=== PATIENT | male | born 1955 | race Caucasian/White ===

== ENCOUNTER 2017-05-15 01:46 | Inpatient (IN) | payer OTHER ==
[~2017-05-15] VITALS: Ht 190.5 cm; Wt 104.3 kg
--- NOTE | 2017-05-15 10:19 | Operative Report ---
Operative/Inv Procedure Report Surgery Date: 05/15/17 Name of Procedure: L3, L4 pars osteotomies L3/4, L4/5 far lateral discectomies L3/4, L4/5 TLIF with 4webb cages, autograft, DBX L3/4, L4/5 segmental posterolateral arthrodesis with synthes pedicle screws and rods, autograft, DBX O-arm navigation Pre-Operative Diagnosis: 1.L3/4, L4/5 spondylolisthesis, stenosis 2.Left extruded L3/4 HNP 3.Right L3/4 synovial cyst 4.L5 lateral recess stenosis 5.kyphosis Post-Operative Diagnosis: same Estimated Blood Loss: 1800cc Surgeon/Load Out Person: Cassie CAPELLAN,Yong Burnham MD Anesthesia: general endotracheal tube Monitors: neurophysiologic monitoring IV Fluids: 1800cc replaced with crystalloid, 1L cell saver Implants: synthes, 4webb Urine Output: 1L via arnett Drains: med HV Specimens: L3/4, L4/5 disc material Condition: stable Operative Indication: 62yo male with ongoing back and bilat LE claudication despite nonoperative treatment with unstable L3/4, L4/5 spondylolistheis and left extruded HNP at L3/ 4 contributing to high grade central and foraminal stenosis who now presents for operative decompression and instrumented stabilization. Operative/Procedure Note Note: Patient was taken to the operating room. After appropriate patient identification and surgical timeout, the patient underwent the smooth induction of general endotracheal anesthesia without incident. Once endotracheal tube was secured in position, Arnett catheter was sterilely inserted. DVT prophylaxis utilized throughout the case. Neurophysiologic monitoring leads placed and baseline recordings obtained. Patient then turned to the prone position on the Salo table taking care to ensure that all pressure points were well-padded. Lumbar region low back widely prepped and draped in the usual sterile fashion using povidone iodine solution. Midline incision was marked and infiltrated with local anesthetic. Small gauge spinal needle was placed superficially and a localizing lateral lumbar x-rays obtained and confirmed to be at the L4/5 level. A skin incision was then made from approximately L2 to to L5 with a 10 blade knife and a self-retaining retractor was placed. Dissection was carried down through the subcutaneous tissue with the Bovie to the lumbodorsal fascia. Fascia was incised in midline and a subperiosteal dissection of the lumbar paravertebral muscles performed bilaterally exposing spinous processes, lamina, and facets bilaterally. Muscle was reflected under self-retaining retractors. A [place] was placed at the presumed L3 pars and intraoperative lateral x-ray was obtained to confirm the correct levels. With the levels verified, we then proceeded to expose the transverse processes of L3, L4, and L5 bilaterally. They were decorticated with a high-speed drill to prepare them for arthrodesis. Lateral gutters were packed off. We focused our attention to the decompression. Total laminectomies were performed from L3,L4, and L5 using a combination of the bone scalpel, Leksell rongeur, and Kerrison rongeurs. Pars osteotomies were performed at L3, and L4 using the bone scalpel and total facetectomies were completed skeletonizing the pedicles from L3 to L5 . All bone was saved and passed off to the back table. Exiting and traversing roots were thoroughly decompressed. A synovial cyst on the right at L3/4 was resected and passed off as specimen. We then proceeded with interbody arthrodesis. Starting at L3/4, The dural sac on the left was gently mobilized to the midline. The underlying annulus was coagulated and incised with an 11 blade knife. Discectomy was performed with straight and angled curettes, disc space johanne and rasps until all of the cartilaginous endplate was removed. Caudally extruded disc material in the left gutter was identified. Overlying pseudocapsule was coagulated and incised and several fragments of extruded disc were removed from beneath the shoulder of the L4 root. Morcellated autograft was then packed into the anterior aspect of the disc space. After appropriate trials, an 12 x 26 mm 4 ortiz cage was selected, packed with morcellated autograft then tamped into the disc space under direct observation and countersunk. Visual inspection noted the position of the cage to be excellent. With the L3/4 cage in position, we proceeded with the interbody arthrodesis at L4/5 in an analogous fashion. The disc space was approached via the left side. Complete discectomy was performed and then a second 12 x 26 mm 4 ortiz cage packed with autograft was tamped into the interspace with morcellated autograft in the anterior disc space. The cage countersunk. Neural elements were protected and neurophysiologic monitoring remained stable throughout. Once the facetectomies were completed, we proceeded with placement of the pedicle screw instrumentation. The O arm reference arc was placed on the S1 spinous process and the O arm was brought into play. Reference AP and lateral x -rays were obtained followed by a spin. Axial, coronal, and sagittal reconstructions were then acquired and confirmed. Using O arm navigation, we then proceeded to placement of the Synthes [employer] pedicle screw instrumentation. The entry points were selected with navigation, marked with the drill, pedicles were traversed with a gearshift, sounded with a ball-tipped probe, tapped, and then screws placed. At L3 and L5, 6.5 x 55 mm screws were placed bilaterally. At L4, 6.5 x 50 mm screws placed bilaterally. Once all screws were in position, they were stimulated with thresholds greater than 30 mA. With the screws in position, the O arm was brought back into play. A second spin was obtained and confirmed excellent position of all of the instrumentation the decompression of the central canal and neural foramen was excellent. A 75m right and 65mm left Lordotic titanium rods were then top loaded into the screws and locking caps were placed. Morcellated autograft was packed over the decorticated transverse processes from L3 to L5 bilaterally over which DBX moistened with backbleeding from the pedicle holes. Screws were then finally tightened with an antitorque device. The wound was copiously irrigated with sterile normal saline and we began wound closure. there was no evidence of a CSF leak or significant bleeding. 1 g of IV vancomycin powder was placed into the wound over the cut muscle and soft tissue surfaces. A medium Hemovac drain was placed into the wound and secured to the skin with a 3-0 nylon suture. The wound was closed in layers with interrupted 0 Vicryl suture in the deep muscle and lumbodorsal fascia. Subcutaneous tissue was closed with interrupted 2-0, and 3-0 Vicryl suture and the skin was closed with ashkan. Wounds clean and dried. Bacitracin and a sterile occlusive dressing was placed. Patient was then returned to the supine position, awakened, extubated, and taken to PACU in stable condition. She was noted to be moving all 4 extremities at the completion of the case. All sponge, needle, and instrument counts were correct at the completion of the procedure 3. Neurophysiologic monitoring was stable throughout the case. Findings: 1. caudally extruded left L3/4 HNP 2. right L3/4 synovial cyst 3. L4./5 spondylolisthesis 4. L3, L4, L5 stenosis Discharge Disposition: PACU
--- NOTE | 2017-05-15 14:32 | RADIOLOGY REPORT ---
EXAMINATION: XR LUMBAR SPINE, 2 SEPARATE IMAGES CLINICAL INFORMATION: L3-L4 and L4-L5 PLIF. COMPARISON: MRI scan of the lumbar spine dated 02/14/2017. TECHNIQUE: Lateral views of the lumbar spine were performed and are labeled image 1 and image 2. FINDINGS: Image 1: There is a surgical marker seen projected over the posterior elements at the L4-L5 interspace. Image 2: A surgical marker is seen projected over the L3 pedicle. IMPRESSION: Intraoperative films localizing the L4-L5 interspace and the L3 pedicle.
--- NOTE | 2017-05-15 16:51 | Operative Report ---
Operative/Inv Procedure Report Surgery Date: 05/15/17 Name of Procedure: L3 4 5 transforaminal lumbar interbody fusion Right-sided L3 for removal of synovial cyst left-sided L3 4 discectomy Left-sided trans-facet decompression of exiting traversing nerve roots L45 Bilateral L5 hemilaminotomies L3 4 5 posterior lateral fusion using autograft and allograft L3 4 and 5 posterior lateral segmental instrumentation using Synthes pedicle screws Bone marrow aspirate Stealth navigation Placement of intervertebral biomechanical devices at L3 4 and 45 Bilateral osteotomies at 34 and 454 spondylolisthesis and kyphotic deformity correction Pre-Operative Diagnosis: L3 4 4 5 spondylolisthesis kyphotic deformity. Herniated nucleus pulposis, synovial cyst, L5 lateral recess stenosis Post-Operative Diagnosis: Same Estimated Blood Loss: 1500 Surgeon/Team Assistant: Cassie Livingston MD,Luci Marks Anesthesia: general endotracheal tube Operative/Procedure Note Note: After the successful administration of general endotracheal anesthesia all lines tubes and monitors were placed by anesthesia team the patient positioned prone on the Salo table pressure points padded. The patient usual standard fashion , a spinal needles placed at the L4 5 interspace x-rays used to confirm level after levels removed the patient was prepped and draped usual standard fashion a #10 blade blade was used after 10 mL lidocaine with epinephrine infiltrated into the subcutaneous tissues. This was deepened Bovie cautery to thoracolumbar fascia a subperiosteal dissection was carried out exposing spinous process and lamina of L3 4 and 5 care taken not to denude to 3 joint space after was confirmed by placing a marker lateral to the pars at L3 the 3445 joint space we denuded the transverse processes were exposed bilaterally soft tissue retractors were inserted. We then used the bone scalpel to make cuts in the pars reticularis bilaterally at L3 removing the descending facets of L3 cuts were made in the superior facets of L4 on the left-hand side, we then repeated the steps at L4 with cuts in the pars at L4 removing the posterior once L4 bilaterally the superior facet of L5 bilaterally we then medialized the thecal sac into the disc space at L3 4 for total discectomy at L3 4 we then worked caudally finding the herniated nucleus pulposus which was resected. We then identified a synovial cyst on the right-hand side which was resected and sent off as specimen. We then prepared the endplates packed disc space morselized autograft and placed a 12 x 26 4 web cage. We turned attention to the L4 5 space identified the exiting L4 nerve root traversing L5 nerve root into the disc space for total discectomy and placed another 12 x 26 cage eft and posterior breath the disc was prepacked with morselized autograft. We then placed the spinous process clamp the spinous process of L5 brought the O arm in on the Oxynade workstation with plantar screw to points and trajectories. We were visualizing on the Oxynade workstation is still subarticular stenosis at the L5 level and made note to go back and resect the superior lamina of L5 providing wide axis to traversing and exiting L5 nerve roots at this level. We then identified the pedicles using a high-speed drill to drill supervising airplane pilot holes tapped it placed the navigated lanky probe down the pedicle tapped with 5.5 mm tap. All holes had good circumferential bone, we then placed our pedicle screws, after the transverse processes were decorticated and packed morselized autograft and DBM strips soaked with bone marrow aspirate taken from the pedicles. We placed 6 5 x 50 [id number] by 50s at L4 to 6 5 x 55 at L5 all screws stimulated above threshold with O arm in for confirmatory spin all hardware was excellent position. We then placed 6D5 millimeter on the left a 75 mm on the right secured in place with the set screws and tightened down to torque limiting sheet pile driver operator. We then copiously irrigated with bacitracin irrigation obtained hemostasis, there was no evidence of of any CSF leak. There separate stab incision a Hemovac was left in place the wound was then closed in layers after 1 g Vanco mustn't powder was diffused, we used 0 Vicryls for the muscle and fascia 2-0 Vicryl for deep dermis and skin was closed with ashkan dry sterile dressing applied and the case all needle counts sponge and instrument correct the patient was taken to recovery room in stable condition.
--- NOTE | 2017-05-15 17:15 | RADIOLOGY REPORT ---
EXAMINATION: CR LUMBAR SPINE/INTRAOPERATIVE FLUOROSCOPY CLINICAL INDICATION: L3-L4 and L4-L5 TLIF. O-arm. COMPARISON: Lumbar spine films from earlier today. TECHNIQUE/FINDINGS: Fluoroscopic o-arm equipment was dedicated to the operating room for the performance of an intraoperative procedure. 2 o-arm runs were acquired and are archived in PACS detailing various stages of the L3-L5 fusion with intervening disc spacer placement. Please refer to operative notes for procedural detail. FLUOROSCOPY TIME: 15.96 seconds. IMPRESSION: Administrative dictation for intraoperative fluoroscopy and image archiving in PACS. Please refer to operative notes for details.
[2017-05-15 19:30] VITALS: BP 138/80
--- NOTE | 2017-05-15 19:31 | Admission Core Measures ---
Acute Coronary Syndrome (CM) ACS Core Measures Acute Coronary Syndrome Diagnosis No Congestive Heart Failure (NEW) CHF Core Measures Congestive Heart Failure Diagnosis No Cerebrovascular Accident (NEW) CVA Core Measures CVA/TIA Diagnosis No Venous Thromboembolism VTE Core Kiet (View Protocol) VTE Risk Factors Surgery No Mechanical VTE Prophylaxis d/t N/A MechProphylax Ordered No VTE Pharm Prophylaxis d/t NA PharmProphylax ordered Problem List As ranked by this Provider includes Assessment & Plan 1. Lumbar spine instability HOME MEDS Home Med List No Known Home Medications
--- NOTE | 2017-05-15 19:37 | PN- Neurosurgical ---
Subjective Subjective: POSTOP CHECK feeling ok, no oob yet. hungry. +uo via arnett. no cp/sob/n/v Objective Vital Signs and I&Os see EMR Physical Exam: gen- nad card- s1s2 rrr pulm- ctab abd- soft nt back/ext- incision dressed, scant bloody staining. hv with sanguinous drainage. ttp at incision. calves soft nt bl, alps on. gross motor/sensate intact bl le. Assessment/Plan Assessment/Plan A- 62yoM POD0 sp L3-5 TLIF, awaiting postop oob, stable. 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
[2017-05-15 19:48] VITALS: BP 138/80
[2017-05-15 21:30] VITALS: BP 122/78
[2017-05-16] VITALS (10 sets, daily range): BP systolic 100–116; BP diastolic 56–70
--- NOTE | 2017-05-16 06:58 | PN- Neurosurgical ---
Subjective Subjective: Pt doing well. Pain moderate on COMPUTER SUPPORT TECHNICIAN. reports mild numbness ant right thigh, otherwise no complaints. Objective Vital Signs and I&Os Vital Signs Date Time Temp Pulse Resp B/P B/P Pulse O2 O2 Flow FiO2 Mean Ox Delivery Rate 05/16 0530 97.9 73 20 100/64 97 Nasal 2.0L Cannula 05/16 0130 97.9 74 20 100/64 96 Nasal 2.0L Cannula 05/16 0000 Nasal 2.0L Cannula 05/16 0000 97.7 73 20 116/56 93 Nasal 2.0L Cannula 05/15 2129 98.0 90 20 122/78 05/15 2129 98.0 90 20 122/78 95 Nasal 2.0L Cannula 05/15 1953 Nasal 2.0L Cannula 05/16 1947 98.2 76 20 138/80 95 Nasal 2.0L Cannula 05/15 1929 98.2 76 20 138/80 05/15 1929 95 Nasal 2.0L Cannula Intake & Output 05/16 0805/16 0000 05/15 1600 05/15 0805/15 0000 05/14 1600 Intake Total 750 Output Total 660 Balance 90 Intake, IV 350 Intake, Oral 400 Output, 160 Drainage Output, Urine 500 Patient 104.326 kg Weight Weight Reported by Patient Measurement Method Physical Exam: AF, VSS awake and alert, conversive and appropriate motor normal bilat LE, mild hypesthesia right ant thigh, otherwise intact incision with min serosanguinous dc in bulb drain 130cc overnight, 60cc prior shift per nurse using IS to 3.5L abd soft, carline dinner last jaden, denies nausea Current Medications: Current Medications Sig/Anibal Start time Last Medication Dose Route Stop Time Status Admin Acetaminophen 650 MG Q4P PRN 05/15 1929 AC PO Acetaminophen 1,000 MG .STK-MED ONE 05/15 1021 DC IV 05/15 1022 Bisacodyl 10 MG DAILY NEEDED PRN 05/15 1929 AC AL Cefazolin Sodium 2 GM Q8H 05/15 1929 AC 05/16 N/A 1 UNIT IV 05/18 1159 0400 Cefazolin Sodium 2,000 MG ONCE 05/15 0000 DC IV 05/15 2359 Diazepam 5 MG Q8P PRN 05/15 1929 AC PO Docusate Sodium 100 MG TID 05/15 2199 AC 05/15 PO 2026 Famotidine 20 MG BID 05/150 AC 05/15 PO 2026 Fentanyl Citrate 250 MCG .STK-MED ONE 05/15 1020 DC IM 05/15 1021 Heparin Sodium 5,000 UNIT Q8 05/16 0600 AC 05/16 (Porcine) SC 0557 Hydromorphone HCl 50 MG Q24H PRN 05/15 1830 AC Sodium Chloride 45 ML IV Midazolam HCl 2 MG .STK-MED ONE 05/15 1022 DC IM 05/15 1023 Morphine Sulfate 4 MG .STK-MED ONE 05/15 1745 DC IM 05/15 1746 Morphine Sulfate 4 MG .STK-MED ONE 05/15 1725 DC IM 05/15 1726 Morphine Sulfate 8 MG .STK-MED ONE 05/15 1021 DC IM 05/15 1022 Ondansetron HCl 4 MG Q6P PRN 05/15 1930 AC IV Oxycodone/ 1 TAB Q4P PRN 05/15 1945 AC Acetaminophen PO Oxycodone/ 2 TAB Q4P PRN 05/15 1930 AC Acetaminophen PO Remifentanil 2 MG .STK-MED ONE 05/15 1403 DC IV 05/15 1404 Remifentanil 2 MG .STK-MED ONE 05/15 1346 DC IV 05/15 1347 Remifentanil 3 MG .STK-MED ONE 05/15 1021 DC IV 05/15 1022 Senna 374 MG AT BEDTIME NEED.. 05/15 1930 AC PO Sodium Chloride 1,000 ML .Q10H 05/15 1930 AC 05/16 IV 05/16 1529 0557 Trimethobenzamide HCl 200 MG Q6P PRN 05/15 193 AC IM Zolpidem Tartrate 2.5 MG AT BEDTIME 05/15 2200 CAN PO Assessment/Plan Assessment/Plan Pt POD1 s/p L3/4, L4/5 TLIF with L5 lami and doing well. Has mild meralgia parasthetica right thigh likely from prone positioning, otherwise neuro intact. Plan: -OOB in brace -IS use, DVT prophylaxis -ADAT -dc arnett, dc COMPUTER SUPPORT TECHNICIAN - percocet, valium, toradol today for pain -PT -cont drain until less than 50cc per shift, abx until drain out Core Measures Venous Thromboembolism VTE Risk Factors Surgery No Mechanical VTE Prophylaxis d/t N/A MechProphylax Ordered No VTE Pharm Prophylaxis d/t NA PharmProphylax ordered Attending MD Review Statement Attending Statement Attending MD Statement: examined this patient, discuss w/resident/PA/TAIL BOARD MAN, discussed w/nursing
[2017-05-17 02:19] VITALS: BP 100/50
[2017-05-17 06:52] VITALS: BP 110/60
--- NOTE | 2017-05-17 07:50 | PN- Neurosurgical ---
Subjective Subjective: Pt doing well. Pain well controlled. Right ant thigh numbness improved this am. No left leg pain, resolved since surgery. Objective Vital Signs and I&Os Vital Signs Date Time Temp Pulse Resp B/P B/P Pulse O2 O2 Flow FiO2 Mean Ox Delivery Rate 05/17 0652 98.0 75 20 110/60 95 Room Air 05/17 0219 98.1 68 20 100/50 98 Room Air 05/16 2205 99.1 77 20 110/70 93 Room Air 05/16 1800 98.6 86 20 110/64 90 Room Air 05/16 1328 98.8 90 20 102/70 95 Room Air 05/16 0959 98.3 83 20 110/70 96 Room Air Intake & Output 05/17 0000 05/16 1600 05/16 0000 05/15 1600 Intake Total 360 521 336 1730 750 Output Total 145 610 400 780 660 Balance 215 -110 400 500 90 Intake, IV 120 100 800 350 Intake, Oral 240 400 800 480 400 Output, 145 210 130 160 Drainage Output, Urine 400 400 650 500 Patient 104.326 kg 104.326 kg Weight Weight Reported by Patient Measurement Method Physical Exam: AF, VSS neuro intact bilat LE incision with serosanguinous dc stain on dressing HV with 145cc overnight ambulating, carline po voiding on own Current Medications: Current Medications Sig/Anibal Start time Last Medication Dose Route Stop Time Status Admin Acetaminophen 650 MG Q4P PRN 05/15 1929 AC PO Bisacodyl 10 MG DAILY NEEDED PRN 05/15 1929 AC [place] Cefazolin Sodium 2 GM Q8H 05/15 1929 AC 05/17 N/A 1 UNIT IV 05/18 1159 0315 Diazepam 5 MG Q8P PRN 05/15 1929 AC 05/17 PO 0631 Docusate Sodium 100 MG TID 05/15 2199 AC 05/16 PO 2145 Famotidine 20 MG BID 05/15 2199 AC 05/16 PO 214 Heparin Sodium 5,000 UNIT Q8 05/16 06 AC 05/17 (Porcine) SC 0626 Ketorolac 15 MG Q8P PRN 05/16 0715 AC Tromethamine IV 05/19 0714 Ondansetron HCl 4 MG Q6P PRN 05/15 1929 AC IV Oxycodone/ 1 TAB Q4P PRN 05/15 1944 AC Acetaminophen PO Oxycodone/ 2 TAB Q4P PRN 05/15 1929 AC 05/17 Acetaminophen PO 0627 Patient Medication 1 ED ONE ONE 05/16 1415 DC Teaching ED 05/16 1416 Senna 374 MG AT BEDTIME NEED.. 05/15 1929 AC PO Trimethobenzamide HCl 200 MG Q6P PRN 05/15 1929 AC IM Assessment/Plan Assessment/Plan Pt POD2 s/p L3/4, L4/5 TLIF, L5 lami and doing well. Neurologically intact and resolved preop left leg pain. Plan: -OOB -cont HV until less than 50cc per shift, abx until drain out -DC home with [facility] when drain out -valium, oxycodone prn for dc -fu with me 2 weeks -cont DVT prophylaxis, IS use Core Measures Venous Thromboembolism VTE Risk Factors Surgery No Mechanical VTE Prophylaxis d/t N/A MechProphylax Ordered No VTE Pharm Prophylaxis d/t NA PharmProphylax ordered Attending MD Review Statement Attending Statement Attending MD Statement: examined this patient, discuss w/resident/PA/CARDIAC CATH RN
[2017-05-17 14:20] VITALS: BP 128/72
--- NOTE | 2017-05-17 17:32 | Surg Short-stay <48hrs Dis Sum ---
Visit Information Visit Dates Admission Date: 05/15/17 Discharge Date: 05/18/17 Surgical Short Stay DC Summary Admission Diagnosis: 1.L3/4, L4/5 spondylolisthesis, stenosis 2.Left extruded L3/4 HNP 3.Right L3/4 synovial cyst 4.L5 lateral recess stenosis 5.kyphosis Final Diagnosis: same as above, s/p Surgery Date: 05/15/17 Name of Procedure: L3, L4 pars osteotomies L3/4, L4/5 far lateral discectomies L3/4, L4/5 TLIF with 4webb cages, autograft, DBX L3/4, L4/5 segmental posterolateral arthrodesis with synthes pedicle screws and rods, autograft, DBX O-arm navigation Procedure(s): Surgery Date: 05/15/17 Name of Procedure: L3, L4 pars osteotomies L3/4, L4/5 far lateral discectomies L3/4, L4/5 TLIF with 4webb cages, autograft, DBX L3/4, L4/5 segmental posterolateral arthrodesis with synthes pedicle screws and rods, autograft, DBX O-arm navigation Summary/Significant Findings: Operative Indication: 62yo male with ongoing back and bilat LE claudication despite nonoperative treatment with unstable L3/4, L4/5 spondylolistheis and left extruded HNP at L3/ 4 contributing to high grade central and foraminal stenosis who now presents for operative decompression and instrumented stabilization. Condition at Discharge: stable Discharge Disposition: home or self care Discharge instructions provided to patient/family: Yes Post discharge follow-up plan: 2 week follow up with Copies to: Twyla CAPELLAN,Lucinda Ramirez
--- NOTE | 2017-05-17 18:14 | Patient Discharge Instructions ---
Discharge Instructions General Discharge Information You were seen/treated for: 1. L3/4, L4/5 spondylolisthesis, stenosis 2. Left extruded L3/4 HNP 3. Right L3/4 synovial cyst 4. L5 lateral recess stenosis 5. kyphosis You had these procedures: On 05/15/17, 1. L3, L4 pars osteotomies 2. L3/4, L4/5 far lateral discectomies 3. L3/4, L4/5 TLIF with 4webb cages, autograft, DBX 4. L3/4, L4/5 segmental posterolateral arthrodesis with synthes pedicle screws and rods, autograft, DBX Watch for these problems: Increased pain, pain with walking, redness, swelling or drainage from incision, urinary/fecal incontience Call Surgeon to remove: Delisa Do not soak the wound: Yes No bath, but you may shower: Yes Other wound care: Keep incisions clean and dry, change dressing daily as needed Special Instructions: Wear brace when ambulating at all times Diet Continue normal diet: Yes Activity Full Activity/No Limits: No Activity Self Limited: Yes Pounds, do NOT lift more than: 10 (x 4 weeks) Activity Limited to: Weight bear as tolerated Additional ACTIVITY Info: Use rolling walker as needed Acute Coronary Syndrome Inclusion Criteria At DC or during hospital stay patient has or had the following: ACS DIAGNOSIS No Discharge Core Measures Meds if any: Prescribed or Continued at Discharge Meds if any: NOT Prescribed or Continued at Discharge Congestive Heart Failure Inclusion Criteria At DC or during hospital stay patient has or had the following: CHF DIAGNOSIS No Discharge Core Measures Meds if any: Prescribed or Continued at Discharge Meds if any: NOT Prescribed or Continued at Discharge Cerebrovascular accident Inclusion Criteria At DC or during hospital stay patient has or had the following: CVA/TIA Diagnosis No Discharge Core Measures Meds if any: Prescribed or Continued at Discharge Meds if any: NOT Prescribed or Continued at Discharge Venous thromboembolism Inclusion Criteria VTE Diagnosis No VTE Type NONE VTE Confirmed by (Test) NONE Discharge Core Measures - Per Current guidelines, there needs to be overlap - treatment for the first 5 days of Warfarin therapy. - If discharged on Warfarin prior to 5 days of - overlap therapy, the patient will need to be - assessed for post discharge needs including - *Post discharge parental anticoagulation - *Warfarin and/or parental anticoagulation education - *Follow up date to check INR post discharge At least 5 days overlap therapy as Inpatient No Meds if any: Prescribed or Continued at Discharge Note: Overlap Therapy is Warfarin and Anticoagulant Meds if any: NOT Prescribed or Continued at Discharge
[2017-05-17 22:36] VITALS: BP 100/74
[2017-05-18 06:27] VITALS: BP 110/70
--- NOTE | 2017-05-18 11:40 | Procedure ---
Minor Surgical Procedure Note Date of Procedure: 05/18/17 Procedure Note: DRAIN OUTPUT 40CC OVER LAST 8 HOURS. INCISION WITH DAYANA IN PLACE, NO DRAINAGE, NO SIGNS OF INFECTION. DRAIN PULLED, INCISION AND DRAIN SITE COVERED WITH CLEAN DRY DRESSING. PT TOLERATED PROCEDURE WELL
[2017-05-18] MEDS ORDERED: MIRALAX17 G1 PO (11:45)
[2017-05-18] MEDS ORDERED: CYCLOBENZAPRINE10 M1 PO (11:45)
[2017-05-18] MEDS ORDERED: PERCOCET 5-3251 EACH PO (11:45)
== END 2017-05-18 14:11 | disposition home health service (06) | DRG 455 ==
LOC: SDA 01:46 → ENRESERV 16:49 → ENTRNSPT 18:53 → EDTRNSPT 19:01 → EDTRNSPTSTS 19:01 → CMPTRNSPT 19:19 → 2NA 19:21 → ENPENDDIS 05-18 12:16 → ENTRNSPT 05-18 13:52 → EDTRNSPT 05-18 14:05 → EDTRNSPTSTS 05-18 14:05 → 2NA 05-18 14:11 → CMPTRNSPT 05-18 14:25
PROC: 0SB00ZZ Excision of Lumbar Vertebral Joint, Open Approach (ICD-10-PCS; principal; 2017-05-15)
PROC: 8E0WXBZ Computer Assisted Procedure of Trunk Region (ICD-10-PCS; principal; 2017-05-15)
PROC: 4A11X4G Monitoring of Peripheral Nervous Electrical Activity, Intraoperative, External Approach (ICD-10-PCS; principal; 2017-05-15)
PROC: 0SG10AJ Fusion of 2 or more Lumbar Vertebral Joints with Interbody Fusion Device, Posterior Approach, Anterior Column, Open Approach (ICD-10-PCS; principal; 2017-05-15)
PROC: 0SG1071 Fusion of 2 or more Lumbar Vertebral Joints with Autologous Tissue Substitute, Posterior Approach, Posterior Column, Open Approach (ICD-10-PCS; principal; 2017-05-15)
PROC: 0ST20ZZ Resection of Lumbar Vertebral Disc, Open Approach (ICD-10-PCS; principal; 2017-05-15)
DX: M51.26 Other intervertebral disc displacement, lumbar region (principal); M40.205 Unspecified kyphosis, thoracolumbar region; M43.16 Spondylolisthesis, lumbar region; M48.061 Spinal stenosis, lumbar region without neurogenic claudication; M71.38 Other bursal cyst, other site
CPT/HCPCS: 2NAP; 36415; 72020; 72100; 87086; 88304; 97116-GO; 97161-GP; C9290; C9399; J0131; J0690; J1170; J1644; J3370